=== PATIENT | female | born 1970 | race Caucasian/White ===

== ENCOUNTER → 2018-08-28 | Outpatient (CLI) | payer OTHER ==
[~2018-08-28] MED LIST: APAP650 PO; ATARAX; FLEXERIL PO; HYDROCODONE-AP1 EAC6 PO; IBUPROFEN 600600 M1 PO; LIORESAL 10 MG10 MG PO; MEDROLDOSEPACK PO; MYRBETRIQ25 MG PO; PRILOSEC 20 MG20 MG PO; ULTRAM 50MG TAB50 MG PO
== END ==
LOC: M.RAD 11:28
DX: M25.471 Effusion, right ankle (principal)

== ENCOUNTER 2019-02-08 16:22 | Emergency (ER) | payer OTHER ==
[~2019-02-08] VITALS: Ht 165.1 cm; Wt 54.9 kg
[2019-02-08] MEDS ORDERED: CYMBALTA20 MG PO (16:43)
[2019-02-08] MEDS ORDERED: CARAFATE1 GM PO (16:43)
[2019-02-08] MEDS ORDERED: ZANTAC 150MG T150 M1 PO (16:43)
[2019-02-08 16:51] LABS: URINE BILIRUBIN NEGATIVE (Negative); URINE BLOOD TRACE (Negative); URINE CLARITY CLEAR; URINE COLOR STRAW; URINE GLUCOSE-RANDOM NEGATIVE (Negative); URINE KETONES NEGATIVE (Negative); URINE LEUKOCYTES-REFLEX NEGATIVE (Negative); URINE NITRITE-REFLEX NEGATIVE (Negative); URINE PROTEIN NEGATIVE (Negative); URINE SPECIFIC GRAVITY <= 1.005 (1.005-1.030); URINE UROBILINOGEN 0.2 E.U./dl (0.2-1.0)
[2019-02-08 17:12] LABS: ABSOLUTE BASOPHILS 0.1 thou/uL (0.0-0.2); ABSOLUTE EOSINOPHILS 0.6 thou/uL (0.0-0.7); ABSOLUTE MONOCYTES 0.8 thou/uL (0.0-1.2); ABSOLUTE NEUTROPHILS 3.6 thou/uL (1.6-8.1); BASOPHILS 0.7 %; EOSINOPHILS 7.7 %; HEMATOCRIT 38.5 % (37.0-47.0); HEMOGLOBIN 13.3 gm/dL (12.0-15.0); LYMPHOCYTES 37.6 %; MCH 30.3 pg (26.0-34.0); MCHC 34.6 g/dL (28.0-37.0); MCV 87.6 fL (80.0-100.0); MONOCYTES 9.6 %; MPV 8.7 fl. (7.2-11.1); NUCLEATED RBCS 0 /100WBC; PLATELET COUNT* 235 thou/uL (150-400); POLYS 44.4 %; RDW-CV 13.6 % (10.5-14.5); WBC 8.1 thou/uL (4.0-11.0)
[2019-02-08 17:21] LABS: CALCIUM 9.1 mg/dL (8.5-10.1); CREATININE 0.9 mg/dL (0.6-1.3); POTASSIUM 3.4 mmol/L (3.5-5.1)
[2019-02-08 17:25] LABS: ALBUMIN 3.8 g/dL (3.4-5.0); TOTAL BILIRUBIN 0.2 mg/dL (<0.1-1.0); TOTAL PROTEIN 7.5 g/dL (6.4-8.2)
[2019-02-08] MEDS ORDERED: MAGNESIUM CITR296 ML PO (18:17)
[2019-02-08] MEDS ORDERED: ZOFRAN ODT4 MG DISSOLVE (18:17)
[2019-02-08] MEDS ORDERED: TRAMADOL 50 MG50 MG PO (18:17)
[2019-02-08] MEDS ORDERED: BENTYL 20 MG TA20 M1 PO (18:17)
[2019-02-08 18:40] VITALS: BP 96/45
--- NOTE | 2019-02-09 17:59 | EKG ---
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
== END 2019-02-08 18:40 | disposition home or self-care (01) ==
LOC: M.ERS 16:22
PROVIDERS: Emergency Medicine Emergency Medical Services
DX: R10.11 Right upper quadrant pain (principal); R10.84 Generalized abdominal pain; R11.2 Nausea with vomiting, unspecified; F17.210 Nicotine dependence, cigarettes, uncomplicated; Z88.2 Allergy status to sulfonamides; Z88.5 Allergy status to narcotic agent; Z90.710 Acquired absence of both cervix and uterus

== ENCOUNTER 2020-11-24 08:18 | Emergency (ER) | payer OTHER ==
[~2020-11-24] VITALS: Ht 162.6 cm; Wt 63.5 kg
[~2020-11-24 08:18] MED LIST changes: +BENTYL 20 MG TA20 M1 PO; +CARAFATE1 GM PO; +CYMBALTA20 MG PO; +MAGNESIUM CITR296 ML PO; +TRAMADOL 50 MG50 MG PO; +ZANTAC 150MG T150 M1 PO; +ZOFRAN ODT4 MG DISSOLVE
[2020-11-24] MEDS ORDERED: VESICARE10 M1 PO (08:40)
[2020-11-24] MEDS ORDERED: TROKENDI XR50 MG PO (08:41)
[2020-11-24] MEDS ORDERED: IMITREX 25 MG T25 M1 PO (08:41)
[2020-11-24 09:23] VITALS: BP 109/55
--- NOTE | 2020-11-24 16:22 | EKG ---
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
--- NOTE | 2020-11-25 17:41 | EKG ---
[place] [address] ELECTROCARDIOGRAM REPORT Name: KARINA MORELOS JULY Room: [facility]#: [id number] Admission: 11/24/20 Attend Phys: Discharge: 11/24/20 Date of : 70 Date of Service: 11/24/20 0842 Report #: [id number] THIS REPORT FOR: //name// [facility] ED Test Date: 2020-11-24 Test Time: 08:42:50 Pat Name: KARINA MORELOS Department: Room: Gender: F Clinical Partner: HANK : 1970 Requested By: Florian Modi Order Number: [id number] Jon MD: Aristides Tellez Measurements Intervals [place] Rate: 72 P: 78 [place]: 136 QRS: 83 QRSD: 96 T: 61 QT: 414 QTc: 454 Interpretive Statements Sinus rhythm Compared to ECG 02/08/2019 17:16:58 No significant changes Electronically Signed On 11-25-2020 17:40:50 CDT by Aristides Tellez [email or web address] <ELECTRONICALLY SIGNED> By: Aristides Tellez MD, [facility] 11/25/20 1740 1 1 Aristides Tellez MD, [facility] /EPI
== END 2020-11-24 09:24 | disposition left against medical advice (07) ==
LOC: M.ERS 08:18
DX: R05 Cough (principal); Z53.21 Procedure and treatment not carried out due to patient leaving prior to being seen by health care provider